=== PATIENT | female | born 1945 | race Caucasian/White ===

== ENCOUNTER 2019-03-15 07:57 | Day surgery (SDC) | payer MEDICARE, OTHER ==
[~2019-03-15] VITALS: Ht 152.4 cm; Wt 64.2 kg
[~2019-03-15 07:57] MED LIST: ALEN70 PO; ASPI81CH PO; Aspirin EC81 MG PO; Crutch1 EACH MISC; ERGO400 PO; FISH OIL 1,0001 EAC1 PO; FOLI1 PO; GLUC500 PO; Hair, Skin & N1 EACH PO; MULVITA PO; Norco 5-325 Ta1 EACH PO
== END 2019-03-15 10:30 | disposition home or self-care (01) ==
LOC: ORSCSDS 07:57
PROVIDERS: Surgery
PROC: 0DBL8ZX Excision of Transverse Colon, Via Natural or Artificial Opening Endoscopic, Diagnostic (ICD-10-PCS; principal; 2019-03-15 09:15)
DX: Z12.11 Encounter for screening for malignant neoplasm of colon (principal); Z86.010 Personal history of colon polyps; D12.3 Benign neoplasm of transverse colon; E78.00 Pure hypercholesterolemia, unspecified; Z79.82 Long term (current) use of aspirin
CPT/HCPCS: 88305; J2704; J7120

== ENCOUNTER 2022-03-08 10:25 | Inpatient (IN) | payer MEDICARE, OTHER ==
[~2022-03-08] VITALS: Ht 154.9 cm; Wt 65.8 kg
[2022-03-08 11:18] LABS: Bun/Creatinine Ratio 33.2 (12.0-20.0); Calcium, Blood 8.8 mg/dL (8.5-10.1); Creatinine, Blood 0.72 mg/dL (0.40-1.00); Potassium, Blood 4.1 mmol/L (3.5-5.5)
[2022-03-08 11:22] LABS: BASOPHILS ABSOLUTE AUTO 0.03 K/mm3 (0.00-0.23); BASOPHILS PERCENT AUTO 0 % (0-2); EOSINOPHILS ABSOLUTE AUTO 0.11 K/mm3 (0.00-0.68); EOSINOPHILS PERCENT AUTO 2 % (0-6); Hematocrit 39.1 % (33.0-51.0); Hemoglobin 13.4 g/dL (11.5-16.0); IMMATURE GRAN ABSOLUTE AUTO 0.02 K/mm3 (0.00-0.10); IMMATURE GRAN PERCENT AUTO 0 % (0-1); LYMPHOCYTES ABSOLUTE AUTO 1.46 K/mm3 (0.84-5.20); LYMPHOCYTES PERCENT AUTO 22 % (21-46); MONOCYTES ABSOLUTE AUTO 0.48 K/mm3 (0.16-1.47); MONOCYTES PERCENT AUTO 7 % (4-13); Mean Corpuscular HGB 32.3 pg (26.0-34.0); Mean Corpuscular HGB Conc 34.3 g/dL (31.5-36.5); Mean Corpuscular Volume 94 fL (80-100); Mean Platelet Volume 10.7 fL (9.1-12.4); NEUTROPHILS PERCENT AUTO 69 % (41-73); Platelet Count 191 K/mm3 (150-400); RDW Coefficient Variation 12.8 % (11.7-14.2); RDW Standard Deviation 44.7 fL (35.1-46.3); Red Blood Cell Count 4.15 M/mm3 (3.80-5.20)
[2022-03-08 13:45] LABS: Influenza A, PCR NEGATIVE (NEGATIVE); Influenza B, PCR NEGATIVE (NEGATIVE); Resp Syncytial Virus, PCR NEGATIVE (NEGATIVE)
[2022-03-08 13:46] LABS: SARS-Cov-2 (COVID-19) PCR, MMC POSITIVE (NEGATIVE)
--- NOTE | 2022-03-08 16:46 | NUR ---
PATIENT CAME FROM ER TODAY 03/08/22 AT 1630. RIGHT HIP FX PATIENT IS A&OX4. VS ARE WNL AND IS ON RA. PATIENT REPORTS 5/10 PAIN. WILL MEDICATE PER EMAR. RIGHT HIP IS BRUISED AND TENDER TO TOUCH. DENIES NUMBNESS AND TINGLING IN ALL EXTREMITIES. PEDAL PULSES ARE STRONG. PATIENT TOLERATES PO INTAKE AND IS VOIDING. CALL LIGHT WITHIN REACH. PATIENT IS TO BE ON BEDREST UNTIL SURGERY WITH DR. ALONSO TOMORROW.
[2022-03-09 01:09] LABS: Source, Urine Foley catheter
[2022-03-09 01:13] LABS: Appearance, Urine Clear (Clear); Bilirubin, Urine Neg (Neg); Blood, Urine Neg (Neg); Color, Urine Yellow (P-Yellow); Glucose Qualitative, Urine Neg (Neg); Ketones, Urine 1+ (Neg); Leukocyte Esterase, Urine Neg (Neg); Nitrite, Urine Neg (Neg); Protein, Urine Neg (Neg); Specific Gravity, Urine 1.025 (1.003-1.022); Urobilinogen, Urine NORM (Normal)
--- NOTE | 2022-03-09 04:29 | NUR ---
SHIFT SUMMARY PT VERY PAINFUL WITH MOVEMENT AND REPOSITIONING. 0.5MG IV DILAUDID FOR R HIP PAIN + PT HAVING OCCASSIONAL MUSCLE SPASMS TO THAT R LEG. R HIP REMAINS EXTERNALLY ROTATED AND SHORTENED. SHANIA PLACED THIS SHIFT. NPO SINCE MIDNIGHT + IVF INFUSING PER ORDERS. PT PLANNING TO HAVE SURGERY TODAY. USES CALL LIGHT APPROPRIATELY.
--- NOTE | 2022-03-09 11:58 | NUR ---
TO DAY SURGERY VIA HOSPITAL BED
--- NOTE | 2022-03-09 12:14 | NUR ---
PT INTO SDS VIA BED FROM SURGICAL FLOOR. History, Chart, Medications and Allergies reviewed before start of procedure.Patient confirms NPO status and agrees with scheduled surgery. Lungs clear T/O to Auscultation.IV ACCESS PRESENT UPON ARRIVAL TO UNIT 20G RIGHT FORARM, PATENT FLUSHES EASILY, INFUSING.
--- NOTE | 2022-03-09 13:01 | NUR ---
03/09/22 1301 Jerica Vásquez PATIENT ARRIVED TO OR WITH JAUREGUI CATHETER IN PLACE DRAINING YELLOW URINE.
--- NOTE | 2022-03-09 15:05 | NUR ---
POST OP ARRIVES TO UNIT IN HOSPITAL BED. ALERT & ORIENTED, BUT DROWSY & PAINFUL. LUNGS CLEAR, SLIGHTLY DIM IN BASES. HRR. PPP. WIGGLES TOES. R THIGH w/ 2 BULKY DRSGS. NO DRAINAGE NOTED. R THIGH w/ 2+ EDEMA. SIPS OF WATER GIVEN. WILL MEDICATE FOR PAIN.
--- NOTE | 2022-03-09 19:11 | NUR ---
SHIFT SUMMARY SINCE ARRIVAL TO UNIT POST OP, PAIN MANAGEMENT HAS BEEN GOOD. EATING & DRINKING WELL. HAD A SHORT NAP & FEELS GOOD. 10/08 PAIN.
--- NOTE | 2022-03-10 04:24 | NUR ---
SHIFT SUMMARY PT RESTED WELL T/O SHIFT. WEANED O2 TO ROOM AIR. 1 NORCO FOR PAIN MANAGEMENT. FOAM DRESSINGS TO R HIP REMAIN CDI. JAUREGUI PATENT AND DRAINING CLEAR YELLOW. BONILLA REG DIET. PLAN FOR PT TO WORK WITH PT/OT TODAY. USES CALL LIGHT APPROPRIATELY.
[2022-03-10 05:05] LABS: BASOPHILS ABSOLUTE AUTO 0.01 K/mm3 (0.00-0.23); BASOPHILS PERCENT AUTO 0 % (0-2); EOSINOPHILS ABSOLUTE AUTO 0.01 K/mm3 (0.00-0.68); EOSINOPHILS PERCENT AUTO 0 % (0-6); Hematocrit 31.5 % (33.0-51.0); Hemoglobin 10.7 g/dL (11.5-16.0); IMMATURE GRAN ABSOLUTE AUTO 0.02 K/mm3 (0.00-0.10); IMMATURE GRAN PERCENT AUTO 0 % (0-1); LYMPHOCYTES ABSOLUTE AUTO 0.89 K/mm3 (0.84-5.20); LYMPHOCYTES PERCENT AUTO 14 % (21-46); MONOCYTES ABSOLUTE AUTO 0.57 K/mm3 (0.16-1.47); MONOCYTES PERCENT AUTO 9 % (4-13); Mean Corpuscular HGB 32.6 pg (26.0-34.0); Mean Corpuscular Volume 96 fL (80-100); Mean Platelet Volume 10.7 fL (9.1-12.4); NEUTROPHILS ABSOLUTE AUTO 4.72 K/mm3 (1.96-9.15); NEUTROPHILS PERCENT AUTO 76 % (41-73); Platelet Count 139 K/mm3 (150-400); RDW Coefficient Variation 12.8 % (11.7-14.2); RDW Standard Deviation 45.1 fL (35.1-46.3); Red Blood Cell Count 3.28 M/mm3 (3.80-5.20); White Blood Cell Count 6.22 K/mm3 (4.00-11.30)
[2022-03-10 05:34] LABS: Bun/Creatinine Ratio 19.6 (12.0-20.0); Calcium, Blood 8.1 mg/dL (8.5-10.1); Creatinine, Blood 0.71 mg/dL (0.40-1.00); Magnesium, Blood 2.1 mg/dL (1.6-2.4); Potassium, Blood 4.3 mmol/L (3.5-5.5)
--- NOTE | 2022-03-10 08:10 | NUR ---
ORTHOSTATIC HYPOTENSION WHILE WORKING w/ OT, THIS RN WAS CALLED TO ROOM. PT WAS FOUND LYING BACK IN CHAIR SAYING SHE WAS FEELING BETTER, BUT HAD DIZZINESS UPON STANDING. OT REPORTED BP DANGLING AT BEDSIDE WAS WNL. THEN UPON SITTING IN CHAIR AFTER STANDING WAS 73/63 HR 71. THIS RN ENTERED ROOM APPROX 3 MINUTES TO ASSESS. PT PALE, NOT DIAPHORETIC. REPORTS DIZZINESS HAD RESOLVED. HRR. BP RECHECK WNL 105/58. HR 71.
--- NOTE | 2022-03-10 18:30 | NUR ---
SHIFT SUMMARY WORKED w/ PT & OT. PAIN WELL MANAGED. R THIGH CONTINUES TO BE SWOLLEN. UP TO CHAIR x 1. PLAN TO BE DETERMINED SNF vs HOME w/ HOME HEALTH.
--- NOTE | 2022-03-11 04:31 | NUR ---
ASSUMED CARE OF PT AT 1900 HRS. NO ACUTE CHANGES THIS SHIFT PT IS A&OX4, MOD ASSIST OOB AND IS ABLE TO MAKE NEEDS KNOWN. POST OP DAY 2 FOR L HIP FRACTURE REPAIR AND PINNING, AQUACEL DRESSINGS CDI AND CSM IS INTACT. PAIN IS WELL CONTROLLED WITH PRN NORCO 10MG. PT ABLE TO REST BETWEEN CARES, SLEEPS 7+ HOURS THIS SHIFT. JAUREGUI CATH TO BE D/C IN THE AM. WILL CONTINUE TO MONITOR THIS PT AND GIVE REPORT TO RACHAEL HADLEY.
[2022-03-11 15:12] LABS: Influenza A, PCR NEGATIVE (NEGATIVE); Influenza B, PCR NEGATIVE (NEGATIVE); Resp Syncytial Virus, PCR NEGATIVE (NEGATIVE)
[2022-03-11 15:23] LABS: SARS-Cov-2 (COVID-19) PCR, MMC POSITIVE (NEGATIVE)
--- NOTE | 2022-03-11 15:40 | NUR ---
COVID SCREENING TEST PRIOR TO SNF DISCHARGE IS POSITIVE WITH NEGATIVE ANTIGEN. EXPECTED RESULT , NOT PHONED TO HOSPITALIST. OFFICE SPECIALIST, VIJI, AWARE OF RESULT
--- NOTE | 2022-03-11 17:03 | NUR ---
PT REPORTS PAIN TO RIGHT HIP AND RIGHT UPPER THIGH IS ADEQUATELY CONTROLLED WITH PO MEDS. PT IS 1 PERSON TRANSFER TOE TOUCH TO RIGHT LOWER EXTREMITY WITH USE OF WALKER AND GAIT BELT. PT ANTICIPATES DISCHARGE IN AM TO SNF AND IS IN AGREEMENT WITH THIS DISCHARGE PLAN
--- NOTE | 2022-03-11 17:09 | NUR ---
PT REPORTS LAST BM WAS 3 DAYS AGO- DENIES FEELING LIKE SHE IS CONSTIPATED
--- NOTE | 2022-03-11 18:24 | NUR ---
PT STATES SHE AWOKE WITH A HOARSE VOICE THIS MORNING, DENIES ANY SORE THROAT OR OTHER SYMPTOMS
--- NOTE | 2022-03-12 04:30 | NUR ---
ASSUMED CARE OF PT AT 1900HRS. NO ACUTE CHANGES THIS SHIFT. PT IS A&OX4, 1PA TO [facility] [place], AND IS ABLE TO MAKE NEEDS KNOWN. POST OP DAY 3 FOR L HIP SURGERY AND PINNING, AQUACEL DRESSING IS CDI, CSM INTACT. PAIN IS MANAGED WITH PRN NORCO 10 Q4H. PT TOLERATING DIET, RESTS BETWEEN CARES AND IS ABLE TO SLEEP 7+ HOURS. WILL CONTINUE TO MONITOR AND GIVE HANDOFF REPORT TO DAYSHIFT RN.
--- NOTE | 2022-03-12 09:19 | NUR ---
0812 NOTED PATIENTS SHIFT ASSESSMENT FROM 03/11/22 WAS NOT IN SYSTEM. CHARTED YESTERDAYS SHIFT ssessment at this time as i had cared for this patient on 03/11/22
[2022-03-12 09:51] LABS: SARS-Cov-2 (COVID-19) Antigen Negative (NEGATIVE)
--- NOTE | 2022-03-12 11:22 | NUR ---
REPORT PHONED TO BURAK AT [facility]. PT GIVEN PRUNE JUICE PER REQUEST- PT STATESNICK SALEH HAD MUCH TO EAT AND DOES NOT FEEL CONSTIPATED BUT THAT WOULD PREFER TO HAVE A BM HERE IN HER PRIVATE BATHROOM THAN AT [facility]
--- NOTE | 2022-03-12 12:13 | NUR ---
DISCHARGED VIA [facility]SPORT TO GO TO [facility]. PTS AT BEDSIDE. PT IN AGREEMENT WITH DISCHARGE PLAN.
== END 2022-03-12 12:12 | DRG 480 ==
LOC: ER 10:25 → SURS 12:47
PROVIDERS: Emergency Medicine; Internal Medicine; Orthopaedic Surgery; ADMIT Internal Medicine
PROC: 0QS634Z Reposition Right Upper Femur with Internal Fixation Device, Percutaneous Approach (ICD-10-PCS; principal; 2022-03-09 12:30)
DX: S72.141A Displaced intertrochanteric fracture of right femur, initial encounter for closed fracture (principal); U07.1 COVID-19; M81.0 Age-related osteoporosis without current pathological fracture; M85.80 Other specified disorders of bone density and structure, unspecified site; Z79.899 Other long term (current) drug therapy; Z79.82 Long term (current) use of aspirin; Z98.890 Other specified postprocedural states; W18.30XA Fall on same level, unspecified, initial encounter
CPT/HCPCS: 0241U; 36415; 71045; 73502; 80048; 81003; 83735; 85025; 87426; 96374; 96375; 96376; 97110; 97162; 97166; 97530; 97535; 99285-25; A9270; C1713; C1769; C9803; J0690; J1100; J1170; J1650; J1885; J2270; J2370; J2405; J2704; J2765; J3010; J7030

== ENCOUNTER 2022-12-10 13:30 | Inpatient (IN) | payer MEDICARE, OTHER ==
[~2022-12-10] VITALS: Ht 154.9 cm; Wt 67.1 kg
[2022-12-10 13:52] LABS: BASOPHILS ABSOLUTE AUTO 0.03 K/mm3 (0.00-0.23); BASOPHILS PERCENT AUTO 0 % (0-2); EOSINOPHILS ABSOLUTE AUTO 0.08 K/mm3 (0.00-0.68); EOSINOPHILS PERCENT AUTO 1 % (0-6); Hematocrit 38.2 % (33.0-51.0); Hemoglobin 13.4 g/dL (11.5-16.0); IMMATURE GRAN ABSOLUTE AUTO 0.04 K/mm3 (0.00-0.10); IMMATURE GRAN PERCENT AUTO 1 % (0-1); LYMPHOCYTES PERCENT AUTO 21 % (21-46); MONOCYTES ABSOLUTE AUTO 0.45 K/mm3 (0.16-1.47); MONOCYTES PERCENT AUTO 6 % (4-13); Mean Corpuscular HGB 33.8 pg (26.0-34.0); Mean Corpuscular HGB Conc 35.1 g/dL (31.5-36.5); Mean Corpuscular Volume 96 fL (80-100); Mean Platelet Volume 10.9 fL (9.1-12.4); NEUTROPHILS ABSOLUTE AUTO 4.93 K/mm3 (1.96-9.15); NEUTROPHILS PERCENT AUTO 70 % (41-73); Platelet Count 168 K/mm3 (150-400); RDW Coefficient Variation 12.9 % (11.7-14.2); RDW Standard Deviation 46.3 fL (35.1-46.3); Red Blood Cell Count 3.97 M/mm3 (3.80-5.20); White Blood Cell Count 7.03 K/mm3 (4.00-11.30)
[2022-12-10 14:03] LABS: Albumin, Blood 3.4 g/dL (3.4-5.0); Albumin/Globulin Ratio 1.2 (0.8-1.8); Bilirubin, Total 0.3 mg/dL (0.1-1.0); Bun/Creatinine Ratio 30.2 (12.0-20.0); Calcium, Blood 9.4 mg/dL (8.5-10.1); Creatinine, Blood 0.76 mg/dL (0.40-1.00); Globulin, Blood 2.9 g/dL (2.2-4.0); Potassium, Blood 4.4 mmol/L (3.5-5.5); Total Protein, Blood 6.3 g/dL (6.4-8.2)
--- NOTE | 2022-12-10 18:43 | NUR ---
ARRIVAL TO ROOM 219 PATIENT ARRIVED TO THET FLOOR VIA GURNEY FROM ER WITH [facility]WN SERVICE MANAGER, TRANSFERRED TO HER BED WITH ASSISTANCE FROM SURGICAL FLOOR STAFF, ORIENTED TO ROOM, CALL LIGHT IN REACH, PT REQUESTING PUREWICK WHICH WILL BE SET UP BY DAY SHIFT STAFF.
[2022-12-10 18:45] VITALS: BP 157/62
[2022-12-10 19:33] LABS: International Normalized Ratio 1.04; Prothrombin Time Results 10.9 Sec (9.7-11.5)
[2022-12-10 20:04] VITALS: BP 129/73
[2022-12-11] VITALS (15 sets, daily range): BP systolic 77–138; BP diastolic 53–82
[2022-12-11 05:24] LABS: BASOPHILS ABSOLUTE AUTO 0.02 K/mm3 (0.00-0.23); BASOPHILS PERCENT AUTO 0 % (0-2); EOSINOPHILS ABSOLUTE AUTO 0.01 K/mm3 (0.00-0.68); EOSINOPHILS PERCENT AUTO 0 % (0-6); Hematocrit 37.5 % (33.0-51.0); Hemoglobin 13.2 g/dL (11.5-16.0); IMMATURE GRAN ABSOLUTE AUTO 0.02 K/mm3 (0.00-0.10); IMMATURE GRAN PERCENT AUTO 0 % (0-1); LYMPHOCYTES PERCENT AUTO 5 % (21-46); MONOCYTES ABSOLUTE AUTO 0.32 K/mm3 (0.16-1.47); MONOCYTES PERCENT AUTO 4 % (4-13); Mean Corpuscular HGB 33.9 pg (26.0-34.0); Mean Corpuscular HGB Conc 35.2 g/dL (31.5-36.5); Mean Corpuscular Volume 96 fL (80-100); Mean Platelet Volume 10.8 fL (9.1-12.4); NEUTROPHILS ABSOLUTE AUTO 7.57 K/mm3 (1.96-9.15); NEUTROPHILS PERCENT AUTO 91 % (41-73); Platelet Count 149 K/mm3 (150-400); RDW Coefficient Variation 13.2 % (11.7-14.2); RDW Standard Deviation 46.8 fL (35.1-46.3); Red Blood Cell Count 3.89 M/mm3 (3.80-5.20); White Blood Cell Count 8.34 K/mm3 (4.00-11.30)
--- NOTE | 2022-12-11 05:41 | NUR ---
SHIFT SUMMARY PT CHANGE OF SHIFT ADMIT YESTERDAY FOR L HIP FRACTURE AFTER A GLF. 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 PT HAS ASKED ME SEVERAL TIMES WHAT HAPPENED. PT AWARE THAT SHE IS IN THE HOSPITAL, CAN TELL ME THE YEAR AND PRESIDENT. BUT HAS NO MEMORY OF EVENTS BEFORE, DURING OR AFTER THE FALL. PT HAS RESTED OFF AND ON T/O THE NIGHT. MEDICATED FOR PAIN PRN PER EMAR. PT HAS BEEN NPO SINCE MIDNIGHT FOR POSSIBLE PROCEDURE TODAY. PUREWICK IN PLACE WITH ADEQUATE OUTPUT. IVF INFUSING, BED IN LOWEST POSITION, CALL LIGHT WITHIN REACH.
[2022-12-11 05:49] LABS: Albumin, Blood 3.1 g/dL (3.4-5.0); Albumin/Globulin Ratio 1.1 (0.8-1.8); Bilirubin, Total 0.7 mg/dL (0.1-1.0); Bun/Creatinine Ratio 22.5 (12.0-20.0); Calcium, Blood 8.6 mg/dL (8.5-10.1); Creatinine, Blood 0.85 mg/dL (0.40-1.00); Globulin, Blood 2.7 g/dL (2.2-4.0); Potassium, Blood 4.2 mmol/L (3.5-5.5); Total Protein, Blood 5.8 g/dL (6.4-8.2)
--- NOTE | 2022-12-11 09:08 | NUR ---
12/11/22 0908 Raúl Smith I PT WAS NOTED TO HAVE A HEALING ABRASION TO THE LEFT ELBOW PRIOR TO ENTERING THE OR. THIS RN PLACED A PADDED DRESSING OVER THE ABRASION.
--- NOTE | 2022-12-11 16:58 | NUR ---
SHIFT SUMMARY PT A&OX4, VSS/RA, BONILLA PO, VOIDING, AMB W/FWW & GB, UP TO CHAIR, PHYSICAL THERAPY EVAL'D, PAIN MANAGED WITH NORCO 5 MG. S/P L HIP PERC PINNING, AQUACEL CDI, WBAT. WILL REPORT TO ONCOMING NOC RN.
[2022-12-12 03:25] VITALS: BP 129/59
--- NOTE | 2022-12-12 04:25 | NUR ---
SHIFT SUMMARY PT POD 0 LEFT HIP PINNING, SHE HAS DONE WELL POST OP, SHE HAS BEEN UP AND AMBULATING USING THE FWW AND IS VOIDING. TOLERATING PO INTAKE. PAIN HAS BEEN WELL CONTROLLED WITH MEDS PER EMAR. DRESSING INTACT TO LEFT HIP C/D/I. VITALS STABLE. PT A/OX4. BED IN LOWEST POSITION, CALL LIGHT WITHIN REACH.
[2022-12-12 07:17] LABS: BASOPHILS ABSOLUTE AUTO 0.02 K/mm3 (0.00-0.23); BASOPHILS PERCENT AUTO 0 % (0-2); EOSINOPHILS ABSOLUTE AUTO 0.16 K/mm3 (0.00-0.68); EOSINOPHILS PERCENT AUTO 3 % (0-6); Hematocrit 34.1 % (33.0-51.0); Hemoglobin 11.5 g/dL (11.5-16.0); IMMATURE GRAN ABSOLUTE AUTO 0.01 K/mm3 (0.00-0.10); IMMATURE GRAN PERCENT AUTO 0 % (0-1); LYMPHOCYTES ABSOLUTE AUTO 1.47 K/mm3 (0.84-5.20); LYMPHOCYTES PERCENT AUTO 23 % (21-46); MONOCYTES ABSOLUTE AUTO 0.53 K/mm3 (0.16-1.47); MONOCYTES PERCENT AUTO 8 % (4-13); Mean Corpuscular HGB 33.4 pg (26.0-34.0); Mean Corpuscular HGB Conc 33.7 g/dL (31.5-36.5); Mean Corpuscular Volume 99 fL (80-100); Mean Platelet Volume 10.7 fL (9.1-12.4); NEUTROPHILS ABSOLUTE AUTO 4.31 K/mm3 (1.96-9.15); NEUTROPHILS PERCENT AUTO 66 % (41-73); Platelet Count 127 K/mm3 (150-400); RDW Coefficient Variation 13.1 % (11.7-14.2); RDW Standard Deviation 48.2 fL (35.1-46.3); Red Blood Cell Count 3.44 M/mm3 (3.80-5.20)
[2022-12-12 07:23] VITALS: BP 127/68
--- NOTE | 2022-12-12 07:24 | NUR ---
recved bedside report from previous RN Olivia. Pt a/o x 4, pleasant/cooperative, denies need for pain medication at this time, call light within reach, bed in lowest position
[2022-12-12 07:38] LABS: Bun/Creatinine Ratio 23.4 (12.0-20.0); Calcium, Blood 8.3 mg/dL (8.5-10.1); Creatinine, Blood 0.81 mg/dL (0.40-1.00); Potassium, Blood 4.1 mmol/L (3.5-5.5)
--- NOTE | 2022-12-12 10:57 | NUR ---
0830-patient ambulating in hallway with nursing staff 0930-dr alvarez rounding on patient 1100-PT treating patient
[2022-12-12 14:44] VITALS: BP 123/57
--- NOTE | 2022-12-12 16:15 | NUR ---
SHIFT SUMMARY: PT REMAINED A/O X 4, PLEASANT/COOPERATIVE, NO ACUTE CHANGES. PT AMBULATED IN HALLWAY THIS SHIFT X 2, WORKED WITH PHYSICAL THERAPY, HAS REMAINED UP IN CHAIR, PARTIALLY BATHED/DRESSED HERSELF, COMPLETED MORNING CARE. FAMILY HAS VISITED THIS SHIFT AND BROUGHT PATIENT CLOTHING FROM HOME. PT DENIES N/V, HAS TOLERATED PO INTAKE, VOIDED, NO BM. DRESSING REMAINS C/D/I. PT RATES PAIN AT 2-3/10 ON ASSESSMENT, STATES SHE IS ABLE TO REST.
[2022-12-12 18:05] VITALS: BP 124/59
[2022-12-13 05:42] VITALS: BP 136/65
--- NOTE | 2022-12-13 06:44 | NUR ---
POD 2 S/P LEFT HIP PINNING. PT VSS T/O NIGHT. DRESSING CDI, MILD SWELLING NOTED, SITE SOFT TO PALP. PAIN MGD W/TYLENOL, 1 NORCO GIVEN BEFORE BED. PT DENIED N/V, IS VOIDING URINE W/O DIFFICULTY. PT AMB IN ROOM /WFWW+1 ASSIST, BONILLA WELL. PLAN TO MOBILIZE W/PT AND AWAIT DC PLANNING.
[2022-12-13 08:55] VITALS: BP 134/64
--- NOTE | 2022-12-13 14:00 | NUR ---
THIS RN ATTEMPTED TO CALL REPORT TO RN AT [facility]. RN UNAVAILBLE, CALL BACK NAME & NUMBER LEFT WITH STAFF.
[2022-12-13 14:25] VITALS: BP 140/64
--- NOTE | 2022-12-13 14:40 | NUR ---
DISCHARGE PATIENT EATING, DRINKING, & VOIDING WELL. AMBULATING WELL W/ FWW SBA TO BATHROOM, CHAIR, & HALLWAYS. PAIN MANAGED WELL PER EMAR W/ TYLENOL. AQUACEL TO LEFT HIP C/D/I. PATIENT DISCHARGED TO [facility], ESCORTED OUT VIA W/C WITH TRANSPORT.
--- NOTE | 2022-12-13 15:14 | NUR ---
REPORT GIVEN TO LEONIE CAMEJO AT [facility]
== END 2022-12-13 14:37 | DRG 482 ==
LOC: ER 13:30 → SURS 18:04
PROVIDERS: Internal Medicine; Student in an Organized Health Care Education/Training Program; ADMIT Internal Medicine
PROC: 0QS734Z Reposition Left Upper Femur with Internal Fixation Device, Percutaneous Approach (ICD-10-PCS; principal; 2022-12-10)
PROC: 3E0234Z Introduction of Serum, Toxoid and Vaccine into Muscle, Percutaneous Approach (ICD-10-PCS; 2022-12-10)
DX: S72.002A Fracture of unspecified part of neck of left femur, initial encounter for closed fracture (principal); M81.0 Age-related osteoporosis without current pathological fracture; E78.5 Hyperlipidemia, unspecified; S50.312A Abrasion of left elbow, initial encounter; Z23 Encounter for immunization; Z98.890 Other specified postprocedural states; Z79.82 Long term (current) use of aspirin; Z79.899 Other long term (current) drug therapy; W18.39XA Other fall on same level, initial encounter
CPT/HCPCS: 36415; 73070; 73502; 80048; 80053; 83880; 84484; 85025; 85610; 90471; 90714; 93005; 93010; 96374; 96375; 97110; 97116; 97161; 97530; 99285-25; A9270; C1713; C1769; J0690; J1100; J1885; J2405; J2704; J3010; J7030; J7120